=== PATIENT | female | born 1975 | race Caucasian/White ===

== ENCOUNTER → 2024-07-18 | Outpatient (REF) | payer OTHER ==
[~2024-07-18] MED LIST: HYOSCYAMINE0.125 MG PO; LISINOPRIL-HCT1 EAC1 PO; ONDANSETRON ODT4 MG PO; PROMETHAZINE HC25 M1 PO; TRAZODONE HCL100 MG PO; VENTOLIN HFA18 GM INH; ZEBETA10 MG PO
== END | disposition home or self-care (01) ==
LOC: LAB 05:00 → OR 10:39 → EDSTATUS 14:30
PROVIDERS: ATTEND Internal Medicine Gastroenterology
DX: R11.2 Nausea with vomiting, unspecified (principal); R19.7 Diarrhea, unspecified; Z80.0 Family history of malignant neoplasm of digestive organs; Z53.9 Procedure and treatment not carried out, unspecified reason
CPT/HCPCS: 93005